=== PATIENT | female | born 1940 | race Caucasian/White ===

== ENCOUNTER 2023-09-17 09:43 | Outpatient (OUT) | payer MEDICARE, MEDICAID, SELFPAY ==
--- NOTE | 2023-09-17 | XR_ITS ---
The [address] [address] Patient Name: LORETTA LEIVA MRN: [id number] date: 1940 Sex: F Assigned Patient Location: Current Patient Location: Accession/Order Number: [id number] Exam Date: 09/17/2023 09:45 Report Date: 09/17/2023 11:22 At the request of: EBONI HAMEED Procedure: XR hand EDMUNDO min 3v EXAMINATION: XR hand EDMUNDO min 3v HISTORY: BILATERAL HAND PAIN COMPARISON: No relevant comparison available. FINDINGS: RIGHT FINDINGS: BONES: No acute fracture or dislocation. Moderate to severe osteoarthritis, most significant along the second through fourth distal interphalangeal joints and the first carpometacarpal joint with joint space narrowing and marginal osteophyte formation . SOFT TISSUES: Negative. No visible soft tissue swelling. OTHER: Negative. LEFT FINDINGS: BONES: No acute fracture or dislocation. Moderate to severe osteoarthritis, most significant along the distal interphalangeal joints and the first carpometacarpal joint with joint collapse and remodeling SOFT TISSUES: Negative. No visible soft tissue swelling. OTHER: Identified persistent flexion of the fingers XR/XR hand EDMUNDO min 3v IMPRESSION: RIGHT CONCLUSION: Moderate to severe osteoarthritis LEFT CONCLUSION: Moderate to severe osteoarthritis Electronically authenticated by: ANNA ARTIS Date: 09/17/2023 11:22
== END 2023-09-17 09:44 | disposition home or self-care (01) ==
LOC: EC 09:44
PROVIDERS: PCP Internal Medicine; Visit Provider Orthopaedic Surgery
DX: M79.641 Pain in right hand (principal); M79.642 Pain in left hand; M19.041 Primary osteoarthritis, right hand; M19.042 Primary osteoarthritis, left hand
CPT/HCPCS: 73130